=== PATIENT | female | born 2005 ===

== ENCOUNTER 2025-08-13 13:41 | Emergency (ER) | payer OTHER, SELFPAY ==
[2025-08-13 13:45] VITALS: BP 157/100
[2025-08-13 13:59] LABS: Hematocrit 42.1 % (37.0-47.0); Hemoglobin 13.9 g/dL (12.0-16.0); Mean Corp Hgb Conc. 33.0 g/dL (33.0-37.0); Mean Corpuscular Volume 90.3 fL (81.0-99.0); Nucleated Red Blood Cells % 0 %; Platelet Count 363 10^3/uL (130-400); Red Cell Dist. Width 12.3 % (11.5-14.5)
[2025-08-13 14:15] LABS: HCG, Serum Qualitative Screen Negative
[2025-08-13 14:18] LABS: Urine Character Clear (Clear)
[2025-08-13 14:19] LABS: ALT (SGPT) 13 U/L (0-35); AST (SGOT) 22 U/L (14-36); Albumin 5.2 g/dl (3.5-5.0); Alkaline Phosphatase 57 U/L (38-126); Blood Urea Nitrogen 7 mg/dl (7-17); Calcium 10.4 mg/dl (8.4-10.2); Carbon Dioxide 25 mmol/L (22-30); Chloride 103 mmol/L (98-107); Glucose 88 mg/dl (70-99); Lipase 55 U/L (23-300); Potassium 4.1 mmol/L (3.5-5.1); Sodium 136 mmol/L (135-145); Total Protein 8.5 g/dl (6.3-8.2); eGFR > 60.00
[2025-08-13 14:29] LABS: Urine Squamous Cell 16-20 /LPF (Few)
[2025-08-13 16:00] VITALS: BP 109/69
--- NOTE | 2025-08-13 17:15 | ED.GENMED ---
History of Present Illness
General
Chief Complaint: Abdominal Pain
Time Seen by Provider: 08/13/25 17:00
History of Present Illness
History of Present Illness:
19-year-old female presents to the emergency department for evaluation of upper abdominal pain that has been ongoing for the past month associated with dark stools. She reports pain is worsened by any food intake, she has yet to find any foods that
do not exacerbate it. The pain begins rapidly within minutes of ingesting food. No vomiting. Does have a history of von Willebrand's disorder. She does not use NSAIDs, denies frequent alcohol use, but does use nicotine vapes.
Review of Systems
Review of Systems
Allergies reviewed?: Yes
All Other Systems: ROS reviewed and negative except as documented in HPI and ROS
Phy Exam
Physical Exam
Physical Exam:
GEN: Well appearing, NAD, WDWN
HEENT: Oral mucosa moist, no scleral icterus
Cardiac: Regular rate
Lung: No respiratory distress, no tachypnea
Abdomen: Soft, focal epigastric tenderness, negative Kaba sign, no rigidity
MSK: No gross deformity or injuries
Skin: Good color, no pallor or jaundice, no rashes
Neuro: AO x3, moves all extremities freely
Psych: Calm, cooperative
Course
Orders/Labs/Results
Orders:
Orders
08/13/25 13:47
Test Result ONCE
08/13/25 13:49
Complete Blood Count/With Diff Urgent
Comprehensive Metabolic Panel Urgent
HCG, Serum Qualitative Screen Urgent
Lipase Urgent
Urine Microscopic Reflex Cult Urgent
Urine Reflex Culture from UA [Urinalysis Reflex To Culture] Urgent
Date Specimen was Collected: 08/13/25
Time Specimen was Collected: 13:48
Abnormal Lab Results
08/13/25
13:49
Calcium 10.4 H mg/dl
(8.4-10.2)
Total Protein 8.5 H g/dl
(6.3-8.2)
Albumin 5.2 H g/dl
(3.5-5.0)
Ur Occult Blood Reflex 4+ A
(Negative)
Urine RBC 7-10 A /HPF
(0-2)
Urine Bacteria (Reflex) Few A
(Negative)
08/13/25 13:49
08/13/25 13:49
Vital Signs
Initial and Last Documented VS:
Initial Vital Signs
Temp Pulse Resp BP Pulse Ox
98.0 F 133 20 157/100 99
08/13/25 13:45 08/13/25 13:45 08/13/25 13:45 08/13/25 13:45 08/13/25 13:45
Last Documented Vital Signs
Temp Pulse Resp BP Pulse Ox
98.0 F 96 20 109/69 99
08/13/25 13:45 08/13/25 16:00 08/13/25 16:00 08/13/25 16:00 08/13/25 17:17
MDM/Problems Addressed
MDM/Problems Addressed:
Patient's labs are reassuring, highly unlikely the patient would have melanotic stools ongoing for the past month with no uremia or anemia. Her symptoms certainly do sound suggestive for peptic ulcer disease or gastritis however and as a result we
will treat her with PPIs and Carafate. Rectal exam was deferred as result would not globe changer given her clinical stability.
*Pulse Oximetry
SaO2: 99
Oxygen Mode of Delivery: Room air
Patient hypoxic: no
*Critical Care Note
Total Time (30-74mins, 75-104mins- exclusive of procedures): Not Applicable
ED Attending Note
-
Portions of this chart may have been created with voice recognition software.� Occasional wrong word or��sound alike� substitutions may have occurred due to the inherent limitations of voice recognition software.
Discharge Plan
Departure
Patient Disposition: Home (Routine Discharge)
Date of Disposition: 08/13/25
Time of Disposition: 17:15
Patient with high blood pressure during this ER visit?: No
Discharge Problem:
Acute gastritis
Instructions: Gastritis (DC)
Prescriptions:
New
pantoprazole 40 mg tablet,delayed release (DR/EC)
40 mg PO DAILY Qty: 30 0RF
sucralfate [Carafate] 1 gram tablet
1 g PO AC Qty: 60 0RF
Referrals:
Riddhi Dick DO [Family Provider]
Fartun Hazel MD [Active, Gastroenterology]
Activity Restrictions/Additional Instructions:
Avoid taking the carafate (sucralfate) within 2 hours of your other medications
Interventions
Interventions:
*Risk Screen - Suicide Last Done: 08/13/25 17:11
*General Assessment Last Done: 08/13/25 13:45
*Neglect/Abuse Screening Last Done: 08/13/25 17:11
*ED- Fall Risk Assessment Last Done: 08/13/25 17:20
*ED COVID-19 Vaccine History Last Done: 08/13/25 17:11
*ED Influenza Vaccine History Last Done: 08/13/25 17:11
*Nursing Disposition Last Done: 08/13/25 17:20
IF-Iwxsql-Jvzzemlihl Assessment Last Done: 08/13/25 17:09
Discharge Date and Time
Discharge Date/Time: 08/13/25 17:21
Print Language: [place]
== END 2025-08-13 17:21 | disposition home or self-care (01) ==
LOC: EMR 13:41
PROVIDERS: Emergency Medicine; EMERGENCY PHYSICIAN Student in an Organized Health Care Education/Training Program; FAMILY PHYSICIAN Family Medicine
DX: K29.00 Acute gastritis without bleeding (principal); D68.00 Von Willebrand disease, unspecified
CPT/HCPCS: 99283; 80053; 81003; 81015; 83690; 84703; 85025